=== PATIENT | female | born 1970 | race Two or more races ===

== ENCOUNTER 2023-04-29 13:17 | Emergency (ER) | payer OTHER ==
[~2023-04-29] VITALS: Ht 162.6 cm; Wt 81.8 kg
[2023-04-29 13:21] VITALS: TEMP 97.8
[2023-04-29] MEDS ORDERED: AMLO-257 PO (13:24)
[2023-04-29] MEDS ORDERED: LEVO100 PO (13:24)
[2023-04-29] MEDS ORDERED: ACET-3385 PO (13:59)
[2023-04-29] MEDS ORDERED: IBUP-1492 PO (13:59)
[2023-04-29] MEDS: ACETAMINOPHEN 500 MG TABLET PO ONE (14:06)
[2023-04-29] MEDS: KETOROLAC TROMETHAMINE 30 MG/ML VIAL IM ONE (14:06)
[2023-04-29 14:09] VITALS: BP 152/83; PULSE 87; RESP 16
== END 2023-04-29 15:32 | disposition home or self-care (01) ==
LOC: EMS 13:20
DX: S76.012A Strain of muscle, fascia and tendon of left hip, initial encounter (principal); I10 Essential (primary) hypertension; E03.9 Hypothyroidism, unspecified; Z90.49 Acquired absence of other specified parts of digestive tract; Z98.51 Tubal ligation status; Z88.0 Allergy status to penicillin; X50.3XXA Overexertion from repetitive movements, initial encounter; Y93.89 Activity, other specified; Y92.89 Other specified places as the place of occurrence of the external cause; Y99.8 Other external cause status
CPT/HCPCS: 99283; 96372; J1885

== ENCOUNTER 2024-02-04 15:44 | Emergency (ER) | payer OTHER ==
[~2024-02-04] VITALS: Ht 157.5 cm; Wt 90.5 kg
[~2024-02-04 15:44] MED LIST: ACET-3385 PO; AMLO-257 PO; IBUP-1492 PO; LEVO100 PO
[2024-02-04 15:49] VITALS: TEMP 98.4
[2024-02-04 16:16] LABS: BASOPHILS % (AUTO) 0.6 % (0.0-2.0); HEMATOCRIT 41.4 % (36-46); HEMOGLOBIN 13.7 g/dL (12.0-16.0); LYMPHOCYTES # (AUTO) 1.7 K/uL (1.0-4.8); LYMPHOCYTES % (AUTO) 20.3 % (22.0-44.0); MEAN CORPUSCULAR HEMOGLOBIN 29.3 pg (26.0-34.0); MEAN CORPUSCULAR VOLUME 89 fL (80-100); MONOCYTES # (AUTO) 0.6 K/uL (0.1-1.0); MONOCYTES % (AUTO) 7.9 % (2.0-9.0); NEUTROPHILS # (AUTO) 5.7 K/uL (1.8-7.7); NEUTROPHILS % (AUTO) 70.2 % (40.0-70.0); PLATELET COUNT (AUTO) 219 K/uL (150-450); RED BLOOD CELL COUNT(AUTO) 4.66 MIL/uL (4.00-5.20); RED CELL DISTRIBUTION WIDTH 13.8 % (11.5-14.5); WHITE BLOOD COUNT (AUTO) 8.2 K/uL (4.5-11.0)
[2024-02-04 16:27] LABS: CALCIUM, TOTAL 9.8 mg/dL (8.8-10.5); CREATININE 1.04 mg/dL (0.60-1.30); POTASSIUM 3.6 mmol/L (3.5-5.1)
[2024-02-04] MEDS: ACETAMINOPHEN 325 MG TABLET PO ONE (18:41)
[2024-02-04] MEDS: IBUPROFEN 400 MG TABLET PO ONE (18:41)
[2024-02-04] MEDS: METOCLOPRAMIDE HCL 10 MG TABLET PO ONE (18:41)
[2024-02-04 18:55] LABS: APPEARANCE,URINE CLEAR (CLEAR); BILIRUBIN,URINE NEGATIVE (NEGATIVE); COLOR,URINE COLORLESS (YELLOW); GLUCOSE, URINE (UA) >=1000 mg/dL (NEGATIVE); KETONES,URINE NEGATIVE (NEGATIVE); LEUKOCYTE ESTERASE ,URINE NEGATIVE (NEGATIVE); NITRATE,URINE NEGATIVE (NEGATIVE); OCCULT BLOOD,URINE NEGATIVE (NEGATIVE); PH,URINE 7.5 (5.0-8.0); PROTEIN,URINE NEGATIVE (NEGATIVE); SPECIFIC GRAVITIY, URINE 1.014 (1.003-1.030); UROBILINOGEN,URINE <=1.0 mg/dL (<=1.0)
[2024-02-04 19:08] LABS: BACTERIA,URINE Few /HPF (None Seen); RBC,URINE 0-2 /HPF (0-2); SQUAMOUS EPITHELIAL CELL,UR Moderate /LPF (None Seen); WBC,URINE 0-2 /HPF (0-5)
[2024-02-04] MEDS ORDERED: ONDA-104 PO (19:47)
[2024-02-04 20:13] VITALS: BP 135/79; PULSE 79; RESP 16; O2SAT 98
== END 2024-02-04 20:29 | disposition home or self-care (01) ==
LOC: EMS 15:44
DX: G43.909 Migraine, unspecified, not intractable, without status migrainosus (principal); R11.2 Nausea with vomiting, unspecified; I10 Essential (primary) hypertension; E03.9 Hypothyroidism, unspecified; Z90.49 Acquired absence of other specified parts of digestive tract; Z98.890 Other specified postprocedural states; Z98.51 Tubal ligation status; Z88.0 Allergy status to penicillin
CPT/HCPCS: 80048; 81001; 83690; 85025; 99284